=== PATIENT | male | born 1970 | race Caucasian/White ===

== ENCOUNTER → 2016-03-14 | Outpatient (CLI) | payer OTHER ==
--- NOTE | 2016-03-14 10:04 | CT ---
CT Sinuses (Without Contrast) March 14, 2016 Indication: Sinus congestion. Evaluate for acute sinusitis. Technique: Standard CT of the sinuses utilizing 2.5 mm thick axial acquired slices. The data was refo rmatted coronally in bone algorithm. Dose reduction techniques were utilized. Findings: Confluent mucosal thickening in the ethmoid air cells fills and occludes bilateral frontoet hmoidal recesses and bilateral ostiomeatal complexes. Circumferential nodular mucosal thickening is p resent in bilateral maxillary sinuses, worse right than left. Benign dystrophic calcification is asso ciated with the soft tissue thickening in the inferior aspect of the right maxillary sinus. Minimal m ucosal thickening is present inferior frontal air cells. The sphenoid and mastoid air cells are well- aerated and clear. No layering fluid, mucoperiosteal reaction or destructive bony process. No dental caries. The nasal s eptum is bowed to the left 2 to 3 mm. Impression: 1. Extensive chronic sinus disease involving the ethmoid and maxillary sinuses resulting in occlusion of the frontoethmoidal recesses and bilateral ostiomeatal complexes. Equivocal polyposis involving t he right maxillary sinus. 2. No evidence of acute sinusitis, osteomyelitis, or aggressive process. Comment: A voicemail was left for Dr. Manjit Ariza shortly after study completion at 9:30 a.m. on Mar.
== END ==
LOC: FIMAGING 08:42
PROVIDERS: ATTEND Internal Medicine
DX: J32.2 Chronic ethmoidal sinusitis (principal); J32.0 Chronic maxillary sinusitis; J33.8 Other polyp of sinus